=== PATIENT | female | born 1955 | race Caucasian/White ===

== ENCOUNTER 2017-08-26 01:35 | Emergency (ER) | payer OTHER ==
[2017-08-26] MEDS ORDERED: Sodium Chloride 0.9% 10 ML Syringe FLUSH PRN (01:51)
[2017-08-26] MEDS ORDERED: HYDROmorphone 1 MG/ML Syringe IVPUSH ONE (01:59)
--- NOTE | 2017-08-26 01:59 | EDM.PDOC ---
ED HPI GENERAL MEDICAL PROBLEM - General Chief Complaint: Lower Extremity Injury/Pain Stated Complaint: Hip Pain Time Seen by Provider: 08/26/17 01:50 Source of Information: Reports: Patient History Limitations: Reports: No Limitations - History of Present Illness INITIAL COMMENTS - FREE TEXT/NARRATIVE: Patient presents with severe pain and spasms to her right hip. She had injections to both of her hips early Monday morning. On this occasion it was the first injection in the left, second on the right. She has iced the right hip. 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 Minimal pain to the left hip, 10/10 pain to the right. Describes pain as sharp, stabbing, penetrating and deep. It is anterior and lateral and stops at the mid thigh. No involvement to the feet. She does have full but painful range of motion. She denies chest pain, SOB, headache, abdominal pain, she has regular bowel and bladder movements with no blood identified. Rare drinker, never a smoker, and denies drug use. Onset: Today, Gradual Duration: Getting Worse, Intermittent Quality: Reports: Sharp, Stabbing Severity: Severe Improves with: Reports: None Worsens with: Reports: Movement Hips Pain Score (Numeric/FACES): 10 - Related Data Allergies Allergy/AdvReac Type Severity Reaction Status Date / Time bumetanide Allergy Rash Verified 08/26/17 01:51 hydrocodone Allergy Nausea and Verified 08/26/17 01:51 Vomiting Sulfa (Sulfonamide Allergy Rash Verified 08/26/17 01:51 Antibiotics) Past Medical History Cardiovascular History: Reports: Aneurysm (aortic arch), Heart Failure, High Cholesterol, Hypertension Endocrine/Metabolic History: Reports: Diabetes, Type II Immunologic History: Reports: Other (See Below) (sjogren's, raynaud) Dermatologic History: Reports: Scleroderma, Other (See Below) (alopecia) - Past Surgical History HEENT Surgical History: Reports: Adenoidectomy, Naso-Sinus Surgery, Other (See Below) (tmj) GI Surgical History: Reports: Appendectomy, Cholecystectomy Female Surgical History: Reports: Section (x 2) Social & Family History - Family History Cardiac: Reports: Heart Failure (father), High Cholesterol (mother, father, sister), Hypertension (mother, father, sister) Respiratory: Reports: Asthma (sister) Endocrine/Metabolic: Reports: Diabetes, type II - Tobacco Use Smoking Status *Q: Never Smoker - Alcohol Use Alcohol Use History: Yes Alcohol Use Frequency: Rarely, Not Used in Over 1 Month - Recreational Drug Use Recreational Drug Use: No Drug Use in Last 12 Months: No - Living Situation & Occupation Living situation: Reports: Review of Systems - Review of Systems Review Of Systems: See Below Constitutional: Reports: No Symptoms Eyes: Reports: No Symptoms Ears: Reports: No Symptoms Nose: Reports: No Symptoms Mouth/Throat: Reports: No Symptoms Respiratory: Reports: No Symptoms Cardiovascular: Reports: No Symptoms GI/Abdominal: Reports: No Symptoms Genitourinary: Reports: No Symptoms Musculoskeletal: Reports: Leg Pain Skin: Reports: No Symptoms Neurological: Reports: No Symptoms Psychiatric: Reports: No Symptoms ED EXAM, GENERAL - Physical Exam Exam: See Below Exam Limited By: No Limitations General Appearance: Alert, WD/WN, Moderate Distress Eye Exam: Bilateral Eye: EOMI, Normal Inspection, PERRL Ears: Normal TMs Neck: Normal Inspection, Supple, Non-Tender, Full Range of Motion Respiratory/Chest: No Respiratory Distress, Lungs Clear, Normal Breath Sounds, No Accessory Muscle Use, Chest Non-Tender Cardiovascular: Normal Peripheral Pulses, Regular Rate, Rhythm, No Edema, No Gallop, No JVD, No Murmur, No Rub Peripheral Pulses: 2+: Radial (L), Radial (R), Posterior Tibial (L), Posterior Tibial (R), Dorsalis Pedis (L), Dorsalis Pedis (R) GI/Abdominal: Normal Bowel Sounds, Soft, Non-Tender, No Organomegaly, No Distention, No Abnormal Bruit, No Mass Back Exam: Normal Inspection, Full Range of Motion, NT Extremities: Normal Inspection, Normal Capillary Refill, Leg Pain, Limited Range of Motion Neurological: Alert, Oriented, CN II-XII Intact, Normal Cognition, Normal Gait, Normal Reflexes, No Motor/Sensory Deficits Psychiatric: Anxious, Tearful Skin Exam: Warm, Dry, Intact, Normal Color, No Rash Lymphatic: No Adenopathy Course - Vital Signs Last Recorded V/S: Last Vital Signs Temp 36.4 C 08/26/17 01:53 Pulse 81 08/26/17 01:53 Resp 23 H 08/26/17 01:53 BP 139/80 08/26/17 01:53 Pulse Ox 98 08/26/17 01:53 - Orders/Labs/Meds Orders: Active Orders 24 hr Category Date Time Status Sodium Chloride 0.9% [Saline Flush] Med 08/26/17 01:51 Active 10 ml FLUSH ASDIRECTED PRN Saline Lock Insert [OM.PC] Routine Oth 08/26/17 01:51 Ordered Medication Orders Sodium Chloride (Saline Flush) 10 ml FLUSH ASDIRECTED PRN PRN Reason: Keep Vein Open Meds: Medications Generic Name Dose Route Start Last Admin Trade Name Freq PRN Reason Stop Dose Admin Sodium Chloride 10 ml 08/26/17 01:51 Saline Flush FLUSH ASDIRECTED PRN Keep Vein Open Discontinued Medications Generic Name Dose Route Start Last Admin Trade Name Freq PRN Reason Stop Dose Admin Cyclobenzaprine HCl 1 packet 08/26/17 03:24 Take Home: Cyclobenzaprine 10 Mg, 4 Tab Pack PO 08/26/17 03:25 ONETIME ONE Diazepam 5 mg 08/26/17 02:00 08/26/17 02:30 Valium IVPUSH 08/26/17 02:01 5 mg ONETIME ONE Administration Hydromorphone HCl 1 mg 08/26/17 01:59 08/26/17 02:30 Dilaudid IVPUSH 08/26/17 02:00 1 mg ONETIME ONE Administration Ketorolac Tromethamine 15 mg 08/26/17 03:21 Toradol IVPUSH 08/26/17 03:22 ONETIME ONE Lorazepam 1 packet 08/26/17 03:24 Take Home: Lorazepam 0.5 Mg, 2 Tab Pack PO 08/26/17 03:25 ONETIME ONE Ondansetron HCl 4 mg 08/26/17 02:00 08/26/17 02:28 Zofran IVPUSH 08/26/17 02:01 4 mg ONETIME ONE Administration Tramadol HCl 1 packet 08/26/17 03:24 Take Home: Tramadol 50 Mg, 4 Tab Pack PO 08/26/17 03:25 ONETIME ONE Departure - Departure Time of Disposition: 03:57 Disposition: Home, Self-Care 01 Condition: Fair Clinical Impression: Osteoarthritis, hip, bilateral - Discharge Information Instructions: Hip Pain Forms: ED Department Discharge Additional Instructions: Follow up with your primary doctor as needed for additional pain management and treatment. I have given you prescriptions for flexeril, tramadol, and lorazepam to get you to the point in which your injections start becoming more effective. If you have additional pain that is uncontrolled, please return for a re- assessment. Utilize heating pad and ice in alternating patterns. Tylenol and ibuprofen products are also useful. Call if you have additional questions or concerns. - Problem List & Annotations (1) Osteoarthritis, hip, bilateral SNOMED Code(s): 670544169 Code(s): M16.0 - BILATERAL PRIMARY OSTEOARTHRITIS OF HIP Status: Acute Priority: Medium Current Visit: Yes Qualifiers: Osteoarthritis type: primary Qualified Code(s): M16.0 - Bilateral primary osteoarthritis of hip - Problem List Review Problem List Initiated/Reviewed/Updated: Yes - My Orders Last 24 Hours: My Active Orders 08/26/17 01:51 Sodium Chloride 0.9% [Saline Flush] 10 ml FLUSH ASDIRECTED PRN Saline Lock Insert [OM.PC] Routine - Assessment/Plan Last 24 Hours: My Active Orders 08/26/17 01:51 Sodium Chloride 0.9% [Saline Flush] 10 ml FLUSH ASDIRECTED PRN Saline Lock Insert [OM.PC] Routine Assessment:: hip pain post injections hip osteoarthritis - bilateral Plan: Follow up with your primary doctor as needed for additional pain management and treatment. I have given you prescriptions for flexeril, tramadol, and lorazepam to get you to the point in which your injections start becoming more effective. If you have additional pain that is uncontrolled, please return for a re- assessment. Utilize heating pad and ice in alternating patterns. Tylenol and ibuprofen products are also useful. Call if you have additional questions or concerns.
[2017-08-26] MEDS ORDERED: Ondansetron 4 MG/2 ML SDV IVPUSH ONE (02:00)
[2017-08-26] MEDS ORDERED: Diazepam 5 MG/ML 10 ML Vial MDV IVPUSH ONE (02:00)
[2017-08-26] MEDS ORDERED: Ketorolac 15 MG/ML SDV IVPUSH ONE (03:21)
[2017-08-26] MEDS ORDERED: Take Home: Cyclobenzaprine 10 MG Tab, 4 Tab Pack PO ONE (03:24)
[2017-08-26] MEDS ORDERED: Take Home: LORazepam 0.5 MG Tab, 2 Tab Pack PO ONE (03:24)
[2017-08-26] MEDS ORDERED: Take Home: traMADol 50 MG, 4 Tab Pack PO ONE (03:24)
[2017-08-26] MEDS ORDERED: Acetaminophen 500 MG Tab PO ONE (03:34)
== END 2017-08-26 03:58 | disposition home or self-care (01) ==
LOC: VM.ED 01:35
DX: M16.0 Bilateral primary osteoarthritis of hip (principal); I11.0 Hypertensive heart disease with heart failure; I50.9 Heart failure, unspecified; E11.9 Type 2 diabetes mellitus without complications; Z88.8 Allergy status to other drugs, medicaments and biological substances; Z88.5 Allergy status to narcotic agent; Z88.2 Allergy status to sulfonamides
CPT/HCPCS: 96374; 96375; 99283; A9270-GY; J1170; J1885; J2405; J3360

== ENCOUNTER 2020-08-30 17:36 | Emergency (ER) | payer OTHER ==
--- NOTE | 2020-08-30 18:05 | EDM.PDOC ---
ED HPI GENERAL MEDICAL PROBLEM - General Chief Complaint: Chest Pain Stated Complaint: chest pain Time Seen by Provider: 08/30/20 17:55 Source of Information: Reports: Patient History Limitations: Reports: No Limitations - History of Present Illness INITIAL COMMENTS - FREE TEXT/NARRATIVE: Patient complains of chest pain that started at 17:00 while she was dropping of food for a friend that is sick with cancer. She states she was feeling fine prior to this, had a sudden onset of substernal chest pain that was sharp in nature, 8/10 and not accompanied by diaphoresis, nausea, or vomiting. She has not had pain like this before. No chest injury. Had been emotional upset prior to this. Did take 324 mg of aspirin prior to this. Has autoimmune disease, chf, and a history of aortic aneurysm. Last check one year ago was fine. Pain is already improved to 3/10. no signs of covid, has had her vaccinations - Related Data Allergies Allergy/AdvReac Type Severity Reaction Status Date / Time bumetanide Allergy Rash Verified 08/30/20 18:11 hydrocodone Allergy Nausea and Verified 08/30/20 18:11 Vomiting Sulfa (Sulfonamide Allergy Rash Verified 08/30/20 18:11 Antibiotics) Home Meds: Home Meds Hydroxychloroquine Sulfate [Plaquenil] 200 mg PO BID 02/05/19 [History] LORazepam [Ativan] 1 mg PO TID PRN 02/05/19 [History] Leflunomide [Arava] 10 mg PO DAILY 02/05/19 [History] Liraglutide [Victoza 3-Julio] 1.8 mg SQ DAILY 02/05/19 [History] Pravastatin Sodium [Pravachol] 20 mg PO DAILY 02/05/19 [History] Sertraline [Zoloft] 100 mg PO DAILY 02/05/19 [History] hydrOXYzine pamoate [Vistaril] 25 mg PO QID PRN 02/05/19 [History] hydroCHLOROthiazide [Microzide] 12.5 mg PO DAILY 02/05/19 [History] metFORMIN [Glucophage] 500 mg PO ASDIRECTED 02/05/19 [History] Aspirin 81 mg PO DAILY 08/30/20 [History] Azelastine [Astelin Nasal Soln] 2 inhalation KATERIN BID 08/30/20 [History] Betamethasone Dipropionate [Diprolene 0.05% Oint] 1 dose TOP BID PRN 08/30/20 [History] Betamethasone Valerate [Valisone 0.1% Crm] 1 dose TOP BID PRN 08/30/20 [History] Chlorhexidine Gluconate [Chlorhexidine Gluconate 0.12% Rinse] 118 ml MM BID 08/30/20 [History] Cinnamon Bark [Cinnamon] 1,000 mg PO BID 08/30/20 [History] Clobetasol [Clobetasol Propionate 0.05%] 1 dose TOP DAILY PRN 08/30/20 [History] ClonazePAM [KlonoPIN] 0.5 mg PO BEDTIME PRN 08/30/20 [History] Codeine/Promethazine [Phenergan with Codeine] 15 ml PO BEDTIME PRN 08/30/20 [History] Cranberry 400 mg PO BID 08/30/20 [History] Cyclobenzaprine [Flexeril] 10 mg PO TID PRN 08/30/20 [History] Fish Oil/What Cheer-3 Fatty Acids [Fish Oil 1,000 MG] 1 each PO BID 08/30/20 [History] Flaxseed Oil [Flax Oil] 1,000 mg PO BID 08/30/20 [History] Gabapentin [Neurontin] 300 mg PO ASDIRECTED 08/30/20 [History] Glucosam/Chond/Collagen/Hyalur [Glucosamine Chondroitin] 1 each PO BID 08/30/20 [History] Grape Seed Extract [Grape Seed] 50 mg PO BID 08/30/20 [History] Hydrocortisone [Hydrocortisone 2.5% Crm] 1 dose TOP BID PRN 08/30/20 [History] Ketoconazole [Nizoral A-D] 125 ml TP DAILY 08/30/20 [History] Lifitegrast [Xiidra] 1 each EYEBOTH BID 08/30/20 [History] Losartan [Cozaar] 25 mg PO BID 08/30/20 [History] Multivit with Minerals/Lutein [A Thru Z Advanced Formula Tab] 1 each PO DAILY 08/30/20 [History] Mupirocin Oint [Bactroban Oint] 1 dose TOP TID PRN 08/30/20 [History] Ondansetron [Zuplenz] 4 mg PO Q6H PRN 08/30/20 [History] Pantoprazole Sodium [Protonix] 20 mg PO BID 08/30/20 [History] Pilocarpine HCl [Salagen] 5 mg PO TID 08/30/20 [History] Potassium Chloride [Klor-Con M20] 20 meq PO DAILY 08/30/20 [History] Pseudoephedrine HCl [Sudafed 12 Hour] 120 mg PO BID PRN 08/30/20 [History] Sildenafil [Revatio] 20 mg PO BID PRN 08/30/20 [History] Triamcinolone Acetonide [Triamcinolone Acetonide 0.1% Crm] 1 applic TOP BID 08/30/20 [History] Ubidecarenone [Co Q-10] 100 mg PO BID 08/30/20 [History] Vitamin E 400 unit PO DAILY 08/30/20 [History] Past Medical History Cardiovascular History: Reports: Aneurysm, Heart Failure, High Cholesterol, Hypertension Endocrine/Metabolic History: Reports: Diabetes, Type II Immunologic History: Reports: Other (See Below) Dermatologic History: Reports: Scleroderma, Other (See Below) - Past Surgical History HEENT Surgical History: Reports: Adenoidectomy, Naso-Sinus Surgery, Other (See Below) GI Surgical History: Reports: Appendectomy, Cholecystectomy Female Surgical History: Reports: Section Social & Family History - Family History Cardiac: Reports: Heart Failure, High Cholesterol, Hypertension Respiratory: Reports: Asthma Endocrine/Metabolic: Reports: Diabetes, type II - Living Situation & Occupation Living situation: Reports: ED ROS GENERAL - Review of Systems Review Of Systems: See Below Constitutional: Reports: No Symptoms HEENT: Reports: No Symptoms Respiratory: Reports: No Symptoms. Denies: Shortness of Breath, Cough Cardiovascular: Reports: No Symptoms, Chest Pain. Denies: Dyspnea on Exertion, Edema, Lightheadedness Endocrine: Reports: No Symptoms GI/Abdominal: Reports: No Symptoms : Reports: No Symptoms Musculoskeletal: Reports: No Symptoms Skin: Reports: No Symptoms Neurological: Reports: No Symptoms Psychiatric: Reports: No Symptoms ED EXAM, GENERAL - Physical Exam Exam: See Below Exam Limited By: No Limitations General Appearance: Alert, WD/WN, No Apparent Distress Eye Exam: Bilateral Eye: EOMI, PERRL Ears: Normal External Exam Nose: Normal Inspection, Normal Mucosa, No Blood Throat/Mouth: Normal Inspection, Normal Lips, Normal Oropharynx, Normal Voice Head: Atraumatic, Normocephalic Neck: Normal Inspection, Supple, Non-Tender, Full Range of Motion Respiratory/Chest: No Respiratory Distress, Lungs Clear, Normal Breath Sounds, No Accessory Muscle Use, Chest Non-Tender Cardiovascular: Normal Peripheral Pulses, Regular Rate, Rhythm, No Murmur, Other (non piting edema 1+ to the ankles bilaterally) GI/Abdominal: Normal Bowel Sounds, Soft (Female) Exam: Deferred Neurological: Alert, Oriented, CN II-XII Intact, Normal Cognition, No Motor/Sensory Deficits Psychiatric: Anxious #1 Interpretation EKG Date: 08/30/20 Time: 17:40 Rhythm: NSR [place]: LAD-Left [place] Deviation P-Wave: Present QRS: Normal ST-T: Normal QT: Normal Course - Orders/Labs/Meds Orders: Active Orders 24 hr Category Date Time Status Cardiac Monitoring [RC] . DIRECTED Care 08/30/20 17:58 Active Chest 2V [CR] Stat Exams 08/30/20 17:58 Ordered Labs: Laboratory Tests 08/30/20 08/30/20 08/30/20 Range/Units 17:59 17:59 17:59 WBC 6.2 (4.0-10.0) x10^3/uL RBC 4.11 (4.00-5.50) x10^6/uL Hgb 12.3 (12.0-16.0) g/dL Hct 36.1 (33.0-47.0) % MCV 87.8 (78.0-93.0) fL MCH 29.9 (26.0-32.0) pg MCHC 34.1 (32.0-36.0) g/dL RDW Coeff of Christine 12.9 (10.0-15.0) % Plt Count 226 D (130-400) x10^3/uL Neut % (Auto) 46.7 L (50.0-80.0) % Lymph % (Auto) 36.9 (25.0-50.0) % [place] % (Auto) 12.4 H (2.0-11.0) % Eos % (Auto) 3.4 (0.0-4.0) % Baso % (Auto) 0.6 (0.2-1.2) % D-Dimer, Quantitative 0.20 (<=0.58) mg/LFEU Sodium 138 (136-145) mmol/L Potassium 3.7 (3.5-5.1) mmol/L Chloride 99 (98-107) mmol/L Carbon Dioxide 29 (21-32) mmol/L Anion Gap 13.7 (5-15) mmol/L BUN 16 (7-18) mg/dL Creatinine 0.9 (0.55-1.02) mg/dL Est Cr Clr Drug Dosing TNP Estimated GFR (MDRD) > 60 Glucose 116 H (70-99) mg/dL Calcium 9.0 (8.5-10.1) mg/dL Corrected Calcium 9.2 (8.5-10.1) mg/dL Total Bilirubin 0.5 (0.2-1.0) mg/dL AST 21 (15-37) U/L ALT 30 (14-59) U/L Alkaline Phosphatase 69 (46-116) U/L Troponin I High Sens 6 (<=51) ng/L Total Protein 7.4 (6.4-8.2) g/dL Albumin 3.8 (3.4-5.0) g/dL Globulin 3.6 Albumin/Globulin Ratio 1.06 - Radiology Interpretation Free Text/Narrative:: chest x-ray without any acute changes. - Re-Assessments/Exams Free Text/Narrative Re-Assessment/Exam: 08/30/20 18:07 Patient has already taken aspirin, pain is improving, denies needing any thing for the pain. Difficulty IV start, will get labs and chest x-ray. 08/30/20 18:57 normal exam. normal labs. discussed setting up an outpatient stress test. Patient will call her physician and set this up. Departure - Departure Time of Disposition: 18:56 Disposition: Home, Self-Care 01 Condition: Good Clinical Impression: Chest pain Instructions: Nonspecific Chest Pain, Adult, [id number] Referrals: Lisa Bridges MD [Primary Care Provider] - Forms: ED Department Discharge Additional Instructions: Testing today was negative for heart attack, blood clot, liver or kidney problems, electrolyte problems or pneumonia. If problems persist make appointment with your physician for possible stress testing. Continue current medications. - My Orders Last 24 Hours: My Active Orders 08/30/20 17:58 Cardiac Monitoring [RC] . DIRECTED Chest 2V [CR] Stat - Assessment/Plan Last 24 Hours: My Active Orders 08/30/20 17:58 Cardiac Monitoring [RC] . DIRECTED Chest 2V [CR] Stat
[2020-08-30 18:24] LABS: CHLORIDE,CL 99 mmol/L (98-107); SODIUM,NA 138 mmol/L (136-145)
[2020-08-30 18:25] LABS: ANION GAP 13.7 mmol/L (5-15)
--- NOTE | 2020-08-30 18:56 | CR ---
[id number] RAD/RAD Chest PA And Lateral EXAM: FRONTAL AND LATERAL CHEST INDICATION: CHEST PAIN COMPARISON: None. DISCUSSION: The heart and lungs are normal in appearance. IMPRESSION: 1. Negative exam. Nicholas Shetty MD 08/30/20 [id number] Thank you for allowing us to participate in the care of your patient.
== END 2020-08-30 19:10 | disposition home or self-care (01) ==
LOC: VM.ED 17:36
DX: R07.89 Other chest pain (principal); I11.0 Hypertensive heart disease with heart failure; I50.9 Heart failure, unspecified; E78.00 Pure hypercholesterolemia, unspecified; Z79.82 Long term (current) use of aspirin; Z79.899 Other long term (current) drug therapy; Z88.5 Allergy status to narcotic agent; Z88.2 Allergy status to sulfonamides; Z88.8 Allergy status to other drugs, medicaments and biological substances
CPT/HCPCS: 36415; 71046; 80053; 84484; 85025; 85379; 93010; 99284; 99285-25